=== PATIENT | male | born 1965 | race Caucasian/White ===

== ENCOUNTER 2018-04-22 08:11 | Observation (INO) | payer BC ==
[~2018-04-22] VITALS: Ht 190.5 cm; Wt 100.7 kg
[2018-04-22] MEDS ORDERED: PIPER-TAZ 3.375 GM 50 ML IV STA (08:38)
[2018-04-22] MEDS ORDERED: ONDANSETRON HCL INJ 2 MG/ML VIAL IV STA (08:38)
[2018-04-22] MEDS ORDERED: SODIUM CHLORIDE 0.9% 1000ML 1,000 ML IV STA (08:38)
[2018-04-22] MEDS ORDERED: KETOROLAC TROMETHAMINE 30 MG/ML VIAL IV STA (08:38)
[2018-04-22] MEDS ORDERED: DIATRIZOATE MEGL/DIATRIZOA SOD 30 ML BTL PO ONE (08:47)
[2018-04-22 08:48] LABS: BASOPHILS % 0.2 % (0.0-1.0); EOSINOPHILS # (AUTO) 0.1 (0.0-0.4); EOSINOPHILS % 0.9 % (0.0-6.0); HEMATOCRIT 40.8 % (38.2-49.6); HEMOGLOBIN 14.1 g/dL (14.0-18.0); LYMPHOCYTES # (AUTO) 1.3 (1.0-3.2); LYMPHOCYTES % 12.5 % (18.0-39.1); MEAN CORPUSCULAR HGB CONC 34.6 g/dL (31-35); MEAN CORPUSCULAR VOLUME 95.6 fL (81-99); MONOCYTES # (AUTO) 1.1 (0.2-0.8); MONOCYTES % 10.8 % (4.4-11.3); NEUTROPHILS # (AUTO) 7.8 (2.1-6.9); NEUTROPHILS % 75.3 % (38.7-80.0); PLATELET COUNT 218 x10e3/uL (140-360); RED BLOOD COUNT 4.27 x10e6/uL (4.3-5.7); RED CELL DISTRIBUTION WIDTH 13.2 % (11.7-14.4)
[2018-04-22 08:57] LABS: INR 1.05; PROTHROMBIN TIME 12.9 seconds (11.9-14.5)
[2018-04-22 08:58] LABS: PARTIAL THROMBOPLASTIN TIME 31.2 seconds (23.8-35.5)
[2018-04-22 09:07] LABS: ALBUMIN 4.2 g/dL (3.5-5.0); ALBUMIN/GLOBULIN RATIO 1.1 (0.8-2.0); ANION GAP 13.2 mmol/L (8-16); CALCIUM 9.9 mg/dL (8.4-10.2); CREATININE, SERUM 1.27 mg/dL (0.72-1.25); POTASSIUM 4.2 mmol/L (3.5-5.1)
--- NOTE | 2018-04-22 09:59 | Diagnostic Imaging Report ---
PROCEDURE: CT ABDOMEN AND PELVIS WITH CONTRAST TECHNIQUE: The abdomen and pelvis were scanned utilizing a multidetector helical scanner from the diaphragm to the lesser trochanter after the IV administration of 100 cc Isovue 370 and the oral demonstration of Gastrografin. Coronal and sagittal multiplanar reformations were obtained. COMPARISON: None. INDICATIONS: RIGHT LOWER QUADRANT PAIN FINDINGS: LOWER THORAX: Normal. HEPATOBILIARY: 1.1 cm hypoattenuating lesion in segment 6, average internal attenuation less than 20 Hounsfield units compatible with a simple cyst. No focal hepatic lesion or intrahepatic biliary ductal dilatation. The gallbladder is unremarkable. SPLEEN: No splenomegaly. PANCREAS: No focal masses or ductal dilatation. ADRENALS: No adrenal nodules. KIDNEYS/URETERS: No hydronephrosis, stones, or solid mass lesions. PELVIC ORGANS/BLADDER: Urinary bladder is incompletely distended but otherwise unremarkable. Prostate and seminal vesicles appear normal. PERITONEUM / RETROPERITONEUM: No free air or fluid. LYMPH NODES: No pelvic sidewall, retroperitoneal, or mesenteric lymphadenopathy. VESSELS: The abdominal aorta, major branch vessels, and iliac arterial systems are well-visualized and patent. 2 renal arteries perfuse each kidney. Portal vein, splenic vein, and central superior mesenteric vein are patent. GI TRACT: The appendix is distended, measuring 1.5 cm, with an appendicolith at the appendiceal origin from the cecum. Adjacent periappendiceal inflammation without adjacent free air or drainable fluid collection. The large bowel is otherwise notable for scattered diverticula along the sigmoid and descending colon, without inflammatory change. Small sliding hiatal hernia. No small bowel dilatation to suggest obstruction. BONES AND SOFT TISSUES: Small fat-containing umbilical hernia. Otherwise no focal soft tissue abnormalities. Mild degenerative disc changes of the lumbar spine. Nonaggressive appearing sclerotic focus in the right femoral head may reflect an infarct or enchondroma. IMPRESSION: Acute appendicitis without jorge luis perforation or periappendiceal abscess. Large bowel diverticulosis without evidence of diverticulitis. Findings were discussed by telephone with charge nurse Ms. Pineda of the emergency center at 9:52 AM 04/22/2018. Dictated by: Mike Balderrama M.D. on 04/22/2018 at 10:03 Electronically approved by: Mike Balderrama M.D. on 04/22/2018 at 10:03
[2018-04-22] MEDS ORDERED: SODIUM CHLORIDE 0.9% 1000ML 1,000 ML IV SCH (10:14)
[2018-04-22] MEDS ORDERED: HYDROMORPHONE 1MG/1ML INJ IV PRN (10:15)
[2018-04-22] MEDS ORDERED: ONDANSETRON HCL INJ 2 MG/ML VIAL IV PRN ×2 (10:15→15:15)
[2018-04-22 10:47] LABS: CLARITY,URINE CLEAR (CLEAR); COLOR,URINE YELLOW (YELLOW); KETONES,URINE NEGATIVE (NEGATIVE); LEUKOCYTE ESTERASE ,URINE NEGATIVE (NEGATIVE); NITRITE,URINE NEGATIVE (NEGATIVE); PROTEIN,URINE DIPSTICK NEGATIVE (NEGATIVE); URINE UROBILINOGEN 0.2 mg/dL (0.2 - 1)
[2018-04-22 10:48] LABS: BILIRUBIN,URINE NEGATIVE (NEGATIVE)
[2018-04-22 10:55] LABS: EPITHELIAL CELLS,URINE RARE /LPF
[2018-04-22] MEDS ORDERED: ACETAMINOPHEN 1000 MG/100 ML IV STA (11:47)
[2018-04-22] MEDS ORDERED: ACETAMINOPHEN 1000 MG/100 ML IV SCH (12:00)
[2018-04-22 12:12] VITALS: BP 128/88
[2018-04-22 12:30] VITALS: BP 128/88
--- NOTE | 2018-04-22 13:01 | Pre Op History & Physical ---
CHIEF COMPLAINT: Right lower quadrant pain, appendicitis. HISTORY OF PRESENT ILLNESS: The patient is a pleasant 53-year-old male admitted complaining of abdominal pain that began at 10:30 p.m. the night prior to admission, later localized into the right lower quadrant. There were no other symptoms. This is the first episode. Patient presented to the emergency room where a CT scan revealed acute appendicitis. PAST MEDICAL HISTORY: Remarkable. He has vasectomy. He is not taking any medicine. HE HAS NO KNOWN ALLERGIES. He does not drink or smoke. FAMILY HISTORY: Noncontributory. REVIEW OF SYSTEMS: Negative except for what has been stated. PHYSICAL EXAMINATION GENERAL: Reveals a 53-year-old male with complaints of right lower quadrant tenderness. VITAL SIGNS: Temperature is 100.1. Vital signs stable. HEAD, EYES, EARS, NOSE AND THROAT: Examination reveals no acute process. LUNGS: Clear. HEART: Reveals regular rhythm. ABDOMEN: Soft with well-localized tenderness and rebound over McBurney's point. EXTREMITIES: Examination reveals no clubbing, cyanosis or edema. NEUROLOGICAL: Nonfocal. IMPRESSION: Acute appendicitis. PLAN: Proceed with a laparoscopic appendectomy, possible open appendectomy. The patient and his agree with surgery, and all questions were answered. They are aware of potential complications such as bleeding, infection, obstruction. Job#: [id number] [email or web address]
[2018-04-22] MEDS ORDERED: BUPIVACAINE 0.25% 30ML SDV INJ ONE (13:13)
[2018-04-22] MEDS ORDERED: SUCCINYLCHOLINE 200 MG/10 ML SYR ONE (14:53)
[2018-04-22] MEDS ORDERED: DEXAMETHASONE SOD PHOS INJ 4 MG/ML VIAL ONE (14:53)
[2018-04-22] MEDS ORDERED: SEVOFLURANE INHAL SOLN 250 ML PEN BTL ONE (14:53)
[2018-04-22] MEDS ORDERED: ACETAMINOPHEN 1000 MG/100 ML IV ONE (14:53)
[2018-04-22] MEDS ORDERED: PROPOFOL IV EMULSION 10 MG/ML 20 ML VIAL ONE (14:53)
[2018-04-22] MEDS ORDERED: GLYCOPYRROLATE INJ 1MG/ 5 ML SYR ONE (14:53)
[2018-04-22] MEDS ORDERED: NEOSTIGMINE 5 MG/5ML SYR ONE (14:53)
[2018-04-22] MEDS ORDERED: LIDOCAINE HCL 2% LOCAL INJ 5 ML SDV VIAL INJ ONE (14:53)
[2018-04-22] MEDS ORDERED: ROCURONIUM BROMIDE 10 MG/ML 5ML VIAL ONE (14:53)
[2018-04-22] MEDS ORDERED: ONDANSETRON HCL INJ 2 MG/ML VIAL ONE (14:53)
[2018-04-22] MEDS: PIPER-TAZ 3.375 GM 50 ML IV SCH ×2 (15:00→20:57)
[2018-04-22] MEDS ORDERED: PIPER-TAZ 3.375 GM 50 ML IV SCH (15:00)
[2018-04-22] MEDS ORDERED: MIDAZOLAM HCL 2 MG/2 ML VIAL ONE (15:40)
[2018-04-22] MEDS ORDERED: FENTANYL CITRATE/PF 100MCG/2 ML INJ ONE (15:40)
--- NOTE | 2018-04-22 16:19 | Operative Report ---
DATE OF PROCEDURE: April 22, 2018 PREOPERATIVE DIAGNOSIS: Acute appendicitis. POSTOPERATIVE DIAGNOSIS: Acute appendicitis. PROCEDURE PERFORMED: Laparoscopic appendectomy. ANESTHESIA: General endotracheal. ESTIMATED BLOOD LOSS: Minimal. DRAINS: None. COMPLICATIONS: None. INDICATIONS AND FINDINGS: The patient is a 53-year-old male who was admitted through the emergency room complaining of abdominal pain localizing to the right lower quadrant. The pain began in the periumbilical region about 10:30 p.m. the day prior to surgery. The patient was evaluated in the emergency room. He had a CT scan that revealed acute appendicitis. Physical examination revealed exquisite tenderness over McBurney's point with rebound. INTRAOPERATIVE FINDINGS: Were acute suppurative appendicitis. There was no evidence of perforation. Staple appendectomy was performed laparoscopically. DESCRIPTION OF PROCEDURE: With the patient lying on the operating table in the supine position after administration of general endotracheal anesthesia, he was prepped and draped for laparoscopic appendectomy. The procedure was begun by establishing a pneumoperitoneum in the umbilical site after a stab wound was made in that location and the saline drop test was performed. A pneumoperitoneum was insufflated to 15 mm of pressure and then we placed a 5 mm trocar in the right upper quadrant, one in the right lower quadrant and another one in the left lower quadrant and through those ports we serially mobilized the appendix and went ahead and then made a rent in the mesentery of the appendix and transected the blood supply of the appendix with an Endo JAVED white load. Then the appendectomy was performed by firing the Endo JAVED with the blue load across the appendix at its junction with the cecum where it was soft and pliable. At this point, we then went ahead and placed the appendix in an Endo bag and removed it through the umbilical port. We inspected the operative field. There was no bleeding. There was no evidence of bowel injury. At this point then, we released the pneumoperitoneum. We went ahead and then as we were able to close the abdomen we noticed there was some bleeding coming from the right upper quadrant, mid clavicular line port and then re-insufflated the pneumoperitoneum. There was small amount of blood in the right upper quadrant that appeared to have come from the right upper quadrant trocar. We then irrigated the trocar site, suctioned out all the blood and the clot and waited several minutes and there was no evidence of recurrent bleeding. We reinspected the stapled appendiceal lines and there was no active bleeding nor did we see bleeding anywhere else. At this point, after we were satisfied there was no active bleeding, we released the pneumoperitoneum and closed the wounds using 0 Vicryl for the umbilical site, 3-0 Vicryl for the subcutaneous tissue in that location as well as the subxiphoid port and the skin above the ports was closed using heron. Then 0.25% Marcaine with epinephrine was given as local block at the end of the case. The patient tolerated the procedure well and was taken to recovery room in stable condition. Job#: [id number] [email or web address]
[2018-04-22 16:33] VITALS: BP 103/65
[2018-04-22] MEDS: DEXTROSE 5%/LACTATED RINGERS 1,000 ML IV SCH (17:35)
[2018-04-22] MEDS ORDERED: IOPAMIDOL 370 MG/ML 200 ML INFUS..BTL INJ ONE (18:03)
[2018-04-22] MEDS ORDERED: SODIUM CHLORIDE 0.9% 50ML 50 ML ONE (18:03)
[2018-04-22 20:00] VITALS: BP 97/61
[2018-04-22] MEDS: HYDROCODONE/APAP 7.5MG-325MG 1 EA TAB PO PRN (20:58)
[2018-04-23] VITALS: BP 101/62
[2018-04-23] MEDS: DEXTROSE 5%/LACTATED RINGERS 1,000 ML IV SCH ×2 (03:04→11:05)
[2018-04-23] MEDS: HYDROCODONE/APAP 7.5MG-325MG 1 EA TAB PO PRN ×2 (03:04→09:00)
[2018-04-23] MEDS: PIPER-TAZ 3.375 GM 50 ML IV SCH ×3 (03:07→15:30)
[2018-04-23 04:00] VITALS: BP 93/53
[2018-04-23 07:27] LABS: BASOPHILS % 0.4 % (0.0-1.0); EOSINOPHILS # (AUTO) 0.2 (0.0-0.4); EOSINOPHILS % 2.6 % (0.0-6.0); HEMATOCRIT 35.6 % (38.2-49.6); LYMPHOCYTES # (AUTO) 1.9 (1.0-3.2); LYMPHOCYTES % 25.2 % (18.0-39.1); MEAN CORPUSCULAR HEMOGLOBIN 33.1 pg (28-32); MEAN CORPUSCULAR HGB CONC 33.7 g/dL (31-35); MEAN CORPUSCULAR VOLUME 98.1 fL (81-99); MONOCYTES # (AUTO) 0.9 (0.2-0.8); MONOCYTES % 11.5 % (4.4-11.3); NEUTROPHILS # (AUTO) 4.6 (2.1-6.9); PLATELET COUNT 193 x10e3/uL (140-360); RED BLOOD COUNT 3.63 x10e6/uL (4.3-5.7); RED CELL DISTRIBUTION WIDTH 13.4 % (11.7-14.4)
[2018-04-23 07:43] LABS: ANION GAP 10.5 mmol/L (8-16); CREATININE, SERUM 1.41 mg/dL (0.72-1.25); POTASSIUM 4.5 mmol/L (3.5-5.1)
[2018-04-23 08:25] VITALS: BP 127/87
[2018-04-23 12:40] VITALS: BP 112/66
[2018-04-23 16:00] VITALS: BP 112/66
[2018-04-23] MEDS ORDERED: ACETAMINOPHEN 325 MG TAB PO PRN (16:15)
[2018-04-23] MEDS ORDERED: CEFTRIAXONE SOD 1 GM VIAL IV NR (16:30)
[2018-04-23] MEDS ORDERED: AUGMENTIN 500-1 EACH PO (20:33)
[2018-04-23] MEDS ORDERED: TYLENOL WITH C1 EACH PO (20:38)
== END 2018-04-23 20:56 | disposition home or self-care (01) ==
LOC: ER 08:11 → ERHOLD 10:20 → IMCU 12:15
PROVIDERS: ADMIT Surgery; ATTEND Surgery
DX: K35.80 Unspecified acute appendicitis (principal); K21.9 Gastro-esophageal reflux disease without esophagitis
CPT/HCPCS: 36415 ×2; 44970; 74177; 80048; 80053; 81001; 85025 ×2; 85610; 85730; 88304; 93005; 99284; G0378 ×2; J0696; J1100; J1885; J2001; J2250; J2405; J2543 ×2; J3490; J7030; J7120; Q9967